=== PATIENT | female | born 1980 | race Caucasian/White ===

== ENCOUNTER 2017-11-08 05:26 | Emergency (ER) | payer OTHER ==
[~2017-11-08] VITALS: Ht 157.5 cm; Wt 97.7 kg
[2017-11-08] MEDS ORDERED: IBUP-2070 PO (05:40)
[2017-11-08] MEDS ORDERED: KETOROLAC TROMETHAMINE 30 MG/ML VIAL IVP ONE (06:15)
[2017-11-08] MEDS ORDERED: SODIUM CHLORIDE 0.9% 1,000 ML IV ONE (06:15)
[2017-11-08] MEDS ORDERED: ONDANSETRON HCL 4 MG/2 ML VIAL IVP ONE (06:15)
[2017-11-08 06:51] LABS: BASOPHILS % (AUTO) 0.9 % (0.0-2.0); EOSINOPHILS % (AUTO) 3.8 % (1.0-6.0); HEMATOCRIT 36.5 % (36-46); HEMOGLOBIN 12.4 g/dL (12.0-16.0); LYMPHOCYTES # (AUTO) 1.5 K/uL (1.0-4.8); LYMPHOCYTES % (AUTO) 23.4 % (22.0-44.0); MEAN CORPUSCULAR HEMOGLOBIN 29.5 pg (26.0-34.0); MEAN CORPUSCULAR HGB CONC 33.9 G/dL (31.0-37.0); MEAN CORPUSCULAR VOLUME 87 fL (80-100); MONOCYTES # (AUTO) 0.5 K/uL (0.1-1.0); MONOCYTES % (AUTO) 7.2 % (2.0-9.0); NEUTROPHILS # (AUTO) 4.1 K/uL (1.8-7.7); NEUTROPHILS % (AUTO) 64.7 % (40.0-70.0); PLATELET COUNT (AUTO) 267 K/uL (150-450); RED BLOOD CELL COUNT(AUTO) 4.19 MIL/uL (4.00-5.20); RED CELL DISTRIBUTION WIDTH 14.2 % (11.5-14.5)
[2017-11-08 06:57] LABS: APPEARANCE,URINE CLEAR (CLEAR); BILIRUBIN,URINE NEGATIVE (NEGATIVE); GLUCOSE, URINE (UA) NEGATIVE (NEGATIVE); KETONES,URINE NEGATIVE (NEGATIVE); LEUKOCYTE ESTERASE ,URINE NEGATIVE (NEGATIVE); NITRATE,URINE NEGATIVE (NEGATIVE); OCCULT BLOOD,URINE TRACE (NEGATIVE); PH,URINE 5.5 (5.0-8.0); PROTEIN,URINE NEGATIVE (NEGATIVE); UROBILINOGEN,URINE 0.2 mg/dL (<=1.0)
[2017-11-08 07:07] LABS: ANION GAP 8 mmol/L (8-16); CALCIUM, TOTAL 8.7 mg/dL (8.8-10.5); CARBON DIOXIDE 27 mmol/L (22-29); CHLORIDE 104 mmol/L (98-107); CREATININE 0.82 mg/dL (0.60-1.30); GLOMERULAR FILTR. RATE CALC > 60 mL/min (>60); GLUCOSE,RANDOM 88 mg/dL (70-110); POTASSIUM 4.1 mmol/L (3.5-5.1); SODIUM SERUM 139 mmol/L (136-145); UREA NITROGEN, BLOOD 9 mg/dL (7-18)
[2017-11-08 07:13] LABS: ALANINE AMINOTRANSFERASE 18 U/L (12-78); ALBUMIN 3.7 g/dL (3.4-5.0); ALKALINE PHOSPHATASE 93 U/L (46-116); ASPARTATE AMINOTRANSFERASE 13 U/L (15-37); BILIRUBIN,TOTAL 0.3 mg/dL (0.1-1.0); LIPASE 125 U/L (73-393); TOTAL PROTEIN, SERUM 7.4 g/dL (6.4-8.2)
[2017-11-08 07:24] LABS: BACTERIA,URINE Rare /HPF (None Seen); SQUAMOUS EPITHELIAL CELL,UR Rare /LPF (None Seen); WBC,URINE None Seen /HPF (0-5)
[2017-11-08 08:35] VITALS: BP 120/77
== END 2017-11-08 08:35 | disposition home or self-care (01) ==
LOC: EMS 05:27
DX: N83.201 Unspecified ovarian cyst, right side (principal); J45.909 Unspecified asthma, uncomplicated; Z87.442 Personal history of urinary calculi
CPT/HCPCS: 36415; 74176; 76856; 80053; 81001; 83690; 85025; 96374; 96375; 99285; J1885; J2405; J7030

== ENCOUNTER 2018-09-05 10:00 | Emergency (ER) | payer OTHER ==
[~2018-09-05] VITALS: Ht 157.5 cm; Wt 96.8 kg
[~2018-09-05 10:00] MED LIST: IBUP-2070 PO
[2018-09-05] MEDS ORDERED: SODIUM CHLORIDE 0.9% 1,000 ML IV ONE (11:30)
[2018-09-05] MEDS ORDERED: CIPROFLOXACIN HCL 250 MG TABLET PO ONE (11:30)
[2018-09-05] MEDS ORDERED: ONDANSETRON HCL 4 MG/2 ML VIAL IVP ONE ×2 (11:30→13:30)
[2018-09-05] MEDS ORDERED: PHENOBARB/HYOSCY/ATROPINE/SCOP 5 ML UDCUP ELIXIR PO ONE (11:30)
[2018-09-05 12:02] LABS: APPEARANCE,URINE CLEAR (CLEAR); BILIRUBIN,URINE NEGATIVE (NEGATIVE); GLUCOSE, URINE (UA) NEGATIVE (NEGATIVE); KETONES,URINE NEGATIVE (NEGATIVE); LEUKOCYTE ESTERASE ,URINE NEGATIVE (NEGATIVE); NITRATE,URINE NEGATIVE (NEGATIVE); OCCULT BLOOD,URINE NEGATIVE (NEGATIVE); PROTEIN,URINE NEGATIVE (NEGATIVE); UROBILINOGEN,URINE 0.2 mg/dL (<=1.0)
[2018-09-05 12:02] LABS: BASOPHILS % (AUTO) 0.8 % (0.0-2.0); EOSINOPHILS % (AUTO) 1.9 % (1.0-6.0); HEMATOCRIT 40.5 % (36-46); HEMOGLOBIN 13.7 g/dL (12.0-16.0); LYMPHOCYTES # (AUTO) 1.4 K/uL (1.0-4.8); LYMPHOCYTES % (AUTO) 22.9 % (22.0-44.0); MEAN CORPUSCULAR HEMOGLOBIN 31.4 pg (26.0-34.0); MEAN CORPUSCULAR HGB CONC 33.9 G/dL (31.0-37.0); MEAN CORPUSCULAR VOLUME 93 fL (80-100); MONOCYTES # (AUTO) 0.4 K/uL (0.1-1.0); NEUTROPHILS % (AUTO) 67.4 % (40.0-70.0); PLATELET COUNT (AUTO) 283 K/uL (150-450); RED BLOOD CELL COUNT(AUTO) 4.37 MIL/uL (4.00-5.20); RED CELL DISTRIBUTION WIDTH 13.5 % (11.5-14.5)
[2018-09-05 12:14] LABS: ANION GAP 7 mmol/L (8-16); CALCIUM, TOTAL 9.3 mg/dL (8.8-10.5); CARBON DIOXIDE 27 mmol/L (22-29); CHLORIDE 103 mmol/L (98-107); CREATININE 0.66 mg/dL (0.60-1.30); GLOMERULAR FILTR. RATE CALC > 60 mL/min (>60); GLUCOSE,RANDOM 72 mg/dL (70-110); POTASSIUM 4.2 mmol/L (3.5-5.1); SODIUM SERUM 137 mmol/L (136-145); UREA NITROGEN, BLOOD 10 mg/dL (7-18)
[2018-09-05 12:20] LABS: ALANINE AMINOTRANSFERASE 18 U/L (12-78); ALBUMIN 3.8 g/dL (3.4-5.0); ALKALINE PHOSPHATASE 88 U/L (46-116); ASPARTATE AMINOTRANSFERASE 12 U/L (15-37); BILIRUBIN,TOTAL 0.5 mg/dL (0.1-1.0); LIPASE 115 U/L (73-393); TOTAL PROTEIN, SERUM 7.4 g/dL (6.4-8.2)
[2018-09-05] MEDS ORDERED: MORPHINE SULFATE 2 MG/ML SYRINGE IVP ONE (13:30)
[2018-09-05 14:41] VITALS: BP 117/72
== END 2018-09-05 14:46 | disposition home or self-care (01) ==
LOC: EMS 10:03
DX: R19.7 Diarrhea, unspecified (principal); R10.31 Right lower quadrant pain; R10.32 Left lower quadrant pain; J45.909 Unspecified asthma, uncomplicated; Z90.49 Acquired absence of other specified parts of digestive tract; Z90.710 Acquired absence of both cervix and uterus; Z98.51 Tubal ligation status; Z87.442 Personal history of urinary calculi
CPT/HCPCS: 36415; 74176; 80053; 81003; 83690; 85025; 96361; 96374; 96375; 96376; 99284; J2270; J2405; J7030

== ENCOUNTER 2018-09-07 13:27 | Emergency (ER) | payer OTHER ==
[~2018-09-07] VITALS: Ht 157.5 cm; Wt 96.8 kg
[2018-09-07 15:54] LABS: BASOPHILS % (AUTO) 0.8 % (0.0-2.0); EOSINOPHILS % (AUTO) 1.5 % (1.0-6.0); HEMATOCRIT 40.7 % (36-46); LYMPHOCYTES # (AUTO) 1.3 K/uL (1.0-4.8); LYMPHOCYTES % (AUTO) 17.1 % (22.0-44.0); MEAN CORPUSCULAR HEMOGLOBIN 31.5 pg (26.0-34.0); MEAN CORPUSCULAR HGB CONC 34.4 G/dL (31.0-37.0); MEAN CORPUSCULAR VOLUME 92 fL (80-100); MONOCYTES # (AUTO) 0.5 K/uL (0.1-1.0); MONOCYTES % (AUTO) 6.1 % (2.0-9.0); NEUTROPHILS # (AUTO) 5.9 K/uL (1.8-7.7); NEUTROPHILS % (AUTO) 74.5 % (40.0-70.0); PLATELET COUNT (AUTO) 319 K/uL (150-450); RED BLOOD CELL COUNT(AUTO) 4.44 MIL/uL (4.00-5.20); RED CELL DISTRIBUTION WIDTH 13.4 % (11.5-14.5)
[2018-09-07 16:02] LABS: ANION GAP 5 mmol/L (8-16); CALCIUM, TOTAL 9.5 mg/dL (8.8-10.5); CARBON DIOXIDE 29 mmol/L (22-29); CHLORIDE 103 mmol/L (98-107); CREATININE 1.02 mg/dL (0.60-1.30); GLOMERULAR FILTR. RATE CALC > 60 mL/min (>60); GLUCOSE,RANDOM 96 mg/dL (70-110); POTASSIUM 4.1 mmol/L (3.5-5.1); SODIUM SERUM 137 mmol/L (136-145); UREA NITROGEN, BLOOD 13 mg/dL (7-18)
[2018-09-07 16:13] LABS: ALANINE AMINOTRANSFERASE 19 U/L (12-78); ALBUMIN 3.8 g/dL (3.4-5.0); ALKALINE PHOSPHATASE 81 U/L (46-116); ASPARTATE AMINOTRANSFERASE 15 U/L (15-37); BILIRUBIN,TOTAL 0.2 mg/dL (0.1-1.0); HCG,QUANTITATIVE < 1 mIU/mL (0-6); LIPASE 168 U/L (73-393); TOTAL PROTEIN, SERUM 7.4 g/dL (6.4-8.2)
[2018-09-07 16:34] LABS: APPEARANCE,URINE CLOUDY (CLEAR); BILIRUBIN,URINE NEGATIVE (NEGATIVE); GLUCOSE, URINE (UA) NEGATIVE (NEGATIVE); KETONES,URINE NEGATIVE (NEGATIVE); LEUKOCYTE ESTERASE ,URINE NEGATIVE (NEGATIVE); NITRATE,URINE NEGATIVE (NEGATIVE); OCCULT BLOOD,URINE NEGATIVE (NEGATIVE); PH,URINE 6.5 (5.0-8.0); PROTEIN,URINE NEGATIVE (NEGATIVE); UROBILINOGEN,URINE 0.2 mg/dL (<=1.0)
[2018-09-07 17:27] VITALS: BP 110/79
== END 2018-09-07 17:58 | disposition home or self-care (01) ==
LOC: EMS 13:28
DX: S39.011A Strain of muscle, fascia and tendon of abdomen, initial encounter (principal); S39.012A Strain of muscle, fascia and tendon of lower back, initial encounter; J45.909 Unspecified asthma, uncomplicated; E66.9 Obesity, unspecified; Z98.51 Tubal ligation status; Z90.710 Acquired absence of both cervix and uterus; Z90.49 Acquired absence of other specified parts of digestive tract; Z68.39 Body mass index [BMI] 39.0-39.9, adult; X58.XXXA Exposure to other specified factors, initial encounter; Y93.89 Activity, other specified; Y92.89 Other specified places as the place of occurrence of the external cause; Y99.8 Other external cause status
CPT/HCPCS: 76700

== ENCOUNTER 2021-11-26 08:51 | Emergency (ER) | payer OTHER ==
[~2021-11-26] VITALS: Ht 157.5 cm; Wt 104.5 kg
[2021-11-26] MEDS ORDERED: SODIUM CHLORIDE 0.9% 1,000 ML IV ONE (10:00)
[2021-11-26] MEDS ORDERED: MORPHINE SULFATE 4 MG/ML SYRINGE IVP ONE (10:00)
[2021-11-26] MEDS ORDERED: KETOROLAC TROMETHAMINE 30 MG/ML VIAL IVP ONE (10:00)
[2021-11-26] MEDS ORDERED: ONDANSETRON HCL 4 MG/2 ML VIAL IVP ONE ×2 (10:00→12:30)
[2021-11-26 10:22] LABS: BASOPHILS % (AUTO) 0.7 % (0.0-2.0); EOSINOPHILS % (AUTO) 1.3 % (1.0-6.0); HEMATOCRIT 39.2 % (36-46); HEMOGLOBIN 13.4 g/dL (12.0-16.0); LYMPHOCYTES # (AUTO) 1.5 K/uL (1.0-4.8); LYMPHOCYTES % (AUTO) 19.3 % (22.0-44.0); MEAN CORPUSCULAR HEMOGLOBIN 31.3 pg (26.0-34.0); MEAN CORPUSCULAR HGB CONC 34.2 G/dL (31.0-37.0); MEAN CORPUSCULAR VOLUME 92 fL (80-100); MONOCYTES # (AUTO) 0.5 K/uL (0.1-1.0); MONOCYTES % (AUTO) 6.3 % (2.0-9.0); NEUTROPHILS # (AUTO) 5.6 K/uL (1.8-7.7); NEUTROPHILS % (AUTO) 72.4 % (40.0-70.0); PLATELET COUNT (AUTO) 233 K/uL (150-450); RED BLOOD CELL COUNT(AUTO) 4.28 MIL/uL (4.00-5.20); RED CELL DISTRIBUTION WIDTH 13.5 % (11.5-14.5)
[2021-11-26 10:31] LABS: CHLORIDE 101 mmol/L (98-107); POTASSIUM 3.9 mmol/L (3.5-5.1); SODIUM SERUM 134 mmol/L (136-145)
[2021-11-26 10:32] LABS: ANION GAP 8 mmol/L (8-16); CALCIUM, TOTAL 8.7 mg/dL (8.8-10.5); CARBON DIOXIDE 25 mmol/L (22-29); CREATININE 0.65 mg/dL (0.60-1.30); GLOMERULAR FILTR. RATE CALC > 60 mL/min (>60); GLUCOSE,RANDOM 88 mg/dL (70-110); UREA NITROGEN, BLOOD 9 mg/dL (7-18)
[2021-11-26 10:37] LABS: ALANINE AMINOTRANSFERASE 21 U/L (12-78); ALBUMIN 3.6 g/dL (3.4-5.0); ALKALINE PHOSPHATASE 71 U/L (46-116); ASPARTATE AMINOTRANSFERASE 12 U/L (15-37); BILIRUBIN,TOTAL 0.3 mg/dL (0.1-1.0); LIPASE 78 U/L (73-393); TOTAL PROTEIN, SERUM 7.1 g/dL (6.4-8.2)
[2021-11-26 12:49] LABS: APPEARANCE,URINE HAZY (CLEAR); BILIRUBIN,URINE NEGATIVE (NEGATIVE); GLUCOSE, URINE (UA) NEGATIVE (NEGATIVE); KETONES,URINE NEGATIVE (NEGATIVE); LEUKOCYTE ESTERASE ,URINE NEGATIVE (NEGATIVE); NITRATE,URINE POSITIVE (NEGATIVE); OCCULT BLOOD,URINE NEGATIVE (NEGATIVE); PH,URINE 5.5 (5.0-8.0); PROTEIN,URINE TRACE mg/dL (NEGATIVE); SPECIFIC GRAVITIY, URINE 1.023 (1.003-1.030); UROBILINOGEN,URINE <=1.0 mg/dL (<=1.0)
[2021-11-26] MEDS ORDERED: ACETAMINOPHEN/CODEINE 300-30 MG TABLET PO ONE (13:00)
[2021-11-26 13:09] LABS: RBC,URINE 0-2 /HPF (0-2)
[2021-11-26 13:10] LABS: BACTERIA,URINE Many /HPF (None Seen)
[2021-11-26] MEDS ORDERED: CEPH-558 PO (13:14)
[2021-11-26] MEDS ORDERED: ACET-2080 PO (13:14)
[2021-11-26 13:21] VITALS: BP 136/86
== END 2021-11-26 13:56 | disposition home or self-care (01) ==
LOC: EMS 08:55
DX: N39.0 Urinary tract infection, site not specified (principal); N83.201 Unspecified ovarian cyst, right side; J45.909 Unspecified asthma, uncomplicated; Z90.89 Acquired absence of other organs; Z90.710 Acquired absence of both cervix and uterus
CPT/HCPCS: 36415; 74176; 80053; 81001; 83690; 84703; 85025; 87086; 96361; 96374; 96375; 96376; 99285; J1885; J2270; J2405; J7030

== ENCOUNTER 2022-03-04 04:55 | Emergency (ER) | payer OTHER ==
[~2022-03-04] VITALS: Ht 157.5 cm; Wt 102.0 kg
[~2022-03-04 04:55] MED LIST changes: +ACET-2080 PO; +CEPH-558 PO
[2022-03-04 05:36] LABS: APPEARANCE,URINE HAZY (CLEAR); GLUCOSE, URINE (UA) NEGATIVE (NEGATIVE); OCCULT BLOOD,URINE LARGE (NEGATIVE); PROTEIN,URINE 30-70 mg/dL (NEGATIVE); SPECIFIC GRAVITIY, URINE 1.023 (1.003-1.030)
[2022-03-04 05:37] LABS: BILIRUBIN,URINE NEGATIVE (NEGATIVE); KETONES,URINE NEGATIVE (NEGATIVE); LEUKOCYTE ESTERASE ,URINE MODERATE (NEGATIVE); NITRATE,URINE NEGATIVE (NEGATIVE); UROBILINOGEN,URINE <=1.0 mg/dL (<=1.0)
[2022-03-04 05:45] LABS: BASOPHILS % (AUTO) 0.6 % (0.0-2.0); EOSINOPHILS % (AUTO) 1.6 % (1.0-6.0); HEMATOCRIT 39.7 % (36-46); HEMOGLOBIN 13.6 g/dL (12.0-16.0); LYMPHOCYTES # (AUTO) 1.7 K/uL (1.0-4.8); LYMPHOCYTES % (AUTO) 18.4 % (22.0-44.0); MEAN CORPUSCULAR HEMOGLOBIN 31.4 pg (26.0-34.0); MEAN CORPUSCULAR HGB CONC 34.1 G/dL (31.0-37.0); MEAN CORPUSCULAR VOLUME 92 fL (80-100); MONOCYTES # (AUTO) 0.5 K/uL (0.1-1.0); MONOCYTES % (AUTO) 5.8 % (2.0-9.0); NEUTROPHILS % (AUTO) 73.6 % (40.0-70.0); PLATELET COUNT (AUTO) 244 K/uL (150-450); RED BLOOD CELL COUNT(AUTO) 4.32 MIL/uL (4.00-5.20); RED CELL DISTRIBUTION WIDTH 13.6 % (11.5-14.5)
[2022-03-04] MEDS ORDERED: SODIUM CHLORIDE 0.9% 1,000 ML IV ONE (05:45)
[2022-03-04 05:54] LABS: BACTERIA,URINE Few /HPF (None Seen); SQUAMOUS EPITHELIAL CELL,UR Few /LPF (None Seen)
[2022-03-04 05:55] LABS: ANION GAP 9 mmol/L (8-16); CARBON DIOXIDE 25 mmol/L (22-29); CHLORIDE 103 mmol/L (98-107); GLUCOSE,RANDOM 105 mg/dL (70-110); SODIUM SERUM 137 mmol/L (136-145); UREA NITROGEN, BLOOD 13 mg/dL (7-18)
[2022-03-04 05:58] LABS: GLOMERULAR FILTR. RATE CALC > 60 mL/min (>60)
[2022-03-04 06:06] LABS: ALANINE AMINOTRANSFERASE 23 U/L (12-78); ALBUMIN 3.6 g/dL (3.4-5.0); ALKALINE PHOSPHATASE 80 U/L (46-116); ASPARTATE AMINOTRANSFERASE 8 U/L (15-37); BILIRUBIN,TOTAL 0.3 mg/dL (0.1-1.0); HCG,QUANTITATIVE < 1 mIU/mL (0-6); TOTAL PROTEIN, SERUM 7.1 g/dL (6.4-8.2)
[2022-03-04 06:15] VITALS: BP 140/74
[2022-03-04] MEDS ORDERED: KETOROLAC TROMETHAMINE 30 MG/ML VIAL IVP ONE (06:30)
[2022-03-04] MEDS ORDERED: ONDANSETRON HCL 4 MG/2 ML VIAL IVP ONE (07:15)
[2022-03-04] MEDS ORDERED: MORPHINE SULFATE 4 MG/ML SYRINGE IVP ONE (07:15)
[2022-03-04] MEDS ORDERED: CEPH-558 PO (07:57)
== END 2022-03-04 08:24 | disposition home or self-care (01) ==
LOC: EMS 04:56
DX: N10 Acute pyelonephritis (principal); J45.909 Unspecified asthma, uncomplicated; Z90.49 Acquired absence of other specified parts of digestive tract; Z90.710 Acquired absence of both cervix and uterus; Z87.442 Personal history of urinary calculi
CPT/HCPCS: 99284; 74176; 96374; 96361; 96375; 80053; 81001; 84702; 84703; 85025; 36415; J1885; J2270; J2405; J7030